=== PATIENT | male | born 1955 | race Caucasian/White ===

== ENCOUNTER → 2018-02-04 | Outpatient (CLI) | payer OTHER ==
[2018-02-04 17:17] LABS: ALBUMIN 3.9 GM/DL (3.2-5.2); ALBUMIN/GLOBULIN RATIO 1.18 (1.00-1.93); ALKALINE PHOSPHATASE 118 U/L (45-117); ALT/SGPT 53 U/L (12-78); AST/SGOT 32 U/L (7-37); BILIRUBIN,DIRECT 0.2 MG/DL (0.0-0.2); BILIRUBIN,TOTAL 0.8 MG/DL (0.2-1.0); TOTAL PROTEIN 7.2 GM/DL (6.4-8.2)
== END ==
LOC: M LAB 15:39
DX: R10.11 Right upper quadrant pain (principal)
CPT/HCPCS: 80076

== ENCOUNTER 2018-02-10 07:25 | Day surgery (SDC) | payer OTHER ==
[~2018-02-10 07:25] MED LIST: LIDOCAINE 1% MDV 20ML VIAL SQ
[2018-02-10] MEDS: AMPICILLIN SOD/SULBACTAM SOD 3 GM in D5W MINI-BAG PLUS 100 ML IV (07:40)
[2018-02-10] MEDS: LR 1,000 ML IV (08:20)
[2018-02-10] MEDS: ISOVUE-300 61% 50ML VIAL (Q9967) As Ordered (10:08)
[2018-02-10] MEDS ORDERED: fentaNYL 100 MCG/2 ML INJECTION (J3010) As Ordered ×2 (10:18→11:38)
[2018-02-10] MEDS ORDERED: SUGAMMADEX SODIUM 500 MG/5 ML VIAL (BRIDION) As Ordered (10:18)
[2018-02-10] MEDS ORDERED: ROCURONIUM BROMIDE 50 MG/5 ML VIAL As Ordered (10:18)
[2018-02-10] MEDS ORDERED: MIDAZOLAM INJ 2 MG/2 ML VIAL (J2250) As Ordered (10:18)
[2018-02-10] MEDS ORDERED: PROPOFOL 200 MG/20 ML VIAL As Ordered ×3 (10:18)
[2018-02-10] MEDS ORDERED: ONDANSETRON 4MG/2ML VIAL (J2405) As Ordered ×2 (10:18→11:41)
[2018-02-10] MEDS ORDERED: LIDOCAINE 2% INJ 100 MG/5 ML SDV (FOR ANES.) As Ordered (10:18)
[2018-02-10] MEDS: CONRAY-60 60% 50ML VIAL (Q9961) As Ordered (10:40)
[2018-02-10] MEDS: BUPIVACAINE HCL 0.25% 30 ML VIAL As Ordered (10:43)
[2018-02-10] MEDS: LIDOCAINE 1% SDV INJ 30 ML VIAL As Ordered (10:43)
[2018-02-10] MEDS ORDERED: KETOROLAC 30 MG/ML VIAL (J1885) As Ordered (11:20)
[2018-02-10] MEDS: KETOROLAC 30 MG/ML VIAL (J1885) IV (11:22)
[2018-02-10] MEDS ORDERED: PERCOCET 5MG/325MG TAB As Ordered (11:38)
[2018-02-10] MEDS: ONDANSETRON 4MG/2ML VIAL (J2405) IV (11:40)
[2018-02-10] MEDS: fentaNYL 100 MCG/2 ML INJECTION (J3010) IV (11:40)
[2018-02-10] MEDS: PERCOCET 5MG/325MG TAB PO ×2 (11:40→12:01)
[2018-02-10] MEDS ORDERED: NORCO, ANEXSIA 5/325MG TABLET (HYDROcodone/ACETAMINOPHEN) PO ×2 (12:00)
[2018-02-10] MEDS ORDERED: ONDANSETRON 4MG/2ML VIAL (J2405) IV (12:00)
[2018-02-10] MEDS ORDERED: METOCLOPRAMIDE INJ 10MG/2ML VIAL (J2765) IV (12:00)
[2018-02-10] MEDS ORDERED: MEPERIDINE INJ 25 MG/ML VIAL (J2175) IV (12:00)
[2018-02-10] MEDS ORDERED: LR 1,000 ML IV (12:00)
== END 2018-02-10 14:15 | disposition home or self-care (01) ==
LOC: M SDC 07:25
DX: K80.10 Calculus of gallbladder with chronic cholecystitis without obstruction (principal); R94.5 Abnormal results of liver function studies; K21.9 Gastro-esophageal reflux disease without esophagitis; G47.33 Obstructive sleep apnea (adult) (pediatric); I10 Essential (primary) hypertension; E78.00 Pure hypercholesterolemia, unspecified; J44.9 Chronic obstructive pulmonary disease, unspecified; R73.02 Impaired glucose tolerance (oral); M15.0 Primary generalized (osteo)arthritis; E66.9 Obesity, unspecified; Z68.39 Body mass index [BMI] 39.0-39.9, adult; Z91.013 Allergy to seafood; Z79.82 Long term (current) use of aspirin; Z87.891 Personal history of nicotine dependence
CPT/HCPCS: 47562

== ENCOUNTER 2018-03-12 11:55 | Day surgery (SDC) | payer OTHER ==
[2018-03-12] MEDS: NS 1,000 ML IV (12:15)
[2018-03-12] MEDS ORDERED: LIDOCAINE 2% INJ 100 MG/5 ML SDV (FOR ANES.) As Ordered (12:33)
[2018-03-12] MEDS ORDERED: PROPOFOL 200 MG/20 ML VIAL As Ordered ×2 (12:33→14:35)
== END 2018-03-12 15:12 | disposition home or self-care (01) ==
LOC: M OPP 15:12
DX: Z12.11 Encounter for screening for malignant neoplasm of colon (principal); D12.5 Benign neoplasm of sigmoid colon; D17.5 Benign lipomatous neoplasm of intra-abdominal organs; K57.30 Diverticulosis of large intestine without perforation or abscess without bleeding; K64.0 First degree hemorrhoids; Z86.79 Personal history of other diseases of the circulatory system; K21.9 Gastro-esophageal reflux disease without esophagitis; Z86.69 Personal history of other diseases of the nervous system and sense organs; Z86.39 Personal history of other endocrine, nutritional and metabolic disease; R12 Heartburn; M19.90 Unspecified osteoarthritis, unspecified site; R22.1 Localized swelling, mass and lump, neck; J44.9 Chronic obstructive pulmonary disease, unspecified; G47.30 Sleep apnea, unspecified; R06.83 Snoring; Z91.013 Allergy to seafood; Z79.82 Long term (current) use of aspirin; Z87.891 Personal history of nicotine dependence; Z80.9 Family history of malignant neoplasm, unspecified
CPT/HCPCS: 45385

== ENCOUNTER → 2018-09-15 | Outpatient (REF) | payer OTHER ==
[~2018-09-15] MED LIST changes: +ASPI81TA52 PO; +IBUP200C25 PO; -LIDOCAINE 1% MDV 20ML VIAL SQ; +MULTTAB4 PO; +VITA100066 PO
== END ==
LOC: M LAB REF 17:06
PROVIDERS: ATTEND Physician Assistant
DX: R10.9 Unspecified abdominal pain (principal)

== ENCOUNTER → 2020-05-29 | Outpatient (CLI) | payer SELFPAY ==
[~2020-05-29] MED LIST changes: +MULT1TAB74 PO; -MULTTAB4 PO
== END ==
LOC: M LABCAHC 16:45
PROVIDERS: ATTEND Pediatrics
DX: Z11.59 Encounter for screening for other viral diseases (principal)

== ENCOUNTER → 2021-04-25 | Outpatient (CLI) | payer MEDICARE, OTHER ==
[2021-04-25 10:46] LABS: INR 1.11; PROTHROMBIN TIME 14.7 SECONDS (12.7-14.5)
[2021-04-25 11:07] LABS: ALBUMIN 3.9 GM/DL (3.2-5.2); ALT/SGPT 44 U/L (12-78); BILIRUBIN,DIRECT 0.3 MG/DL (0.0-0.2); BILIRUBIN,TOTAL 1.2 MG/DL (0.2-1.0); IRON (FE) 94 UG/DL (65-175); PERCENT SATURATION 32.8 % (19.7-50.0); TOTAL IRON BINDING CAPACITY 287 UG/DL (250-450); TOTAL PROTEIN 7.4 GM/DL (6.4-8.2)
[2021-04-25 11:29] LABS: HEPATITIS B SURFACE ANTIGEN NEGATIVE (NEGATIVE)
[2021-04-25 11:56] LABS: HEPATITIS B CORE ANTIBODY IGM NEGATIVE (NEGATIVE); HEPATITIS C VIRUS ABY INDEX < 0.0 INDEX (<0.8)
[2021-04-30 15:12] LABS: ANCA-ATYPICAL <1:20 titer (Neg:<1:20); ANTI-MITOCHONDRIAL ANTIBODY <20.0 Units (0.0-20.0); ANTINUCLEAR ANTIBODIES DIRECT Negative (Negative); CERULOPLASMIN 19.5 mg/dL (16.0-31.0); CYTOPLASMIC NEUTROP AB ANCA-C <1:20 titer (Neg:<1:20); LIVER-KIDNEY MICROSOMAL ABY <20.1 Units (0.0-20.0); PERINUCLEAR AB ANCA-P <1:20 titer (Neg:<1:20); TISSUE TRANSGLUTAMINASE IgA <2 U/mL (0-3)
== END ==
LOC: M PLALAB 07:38
PROVIDERS: ATTEND Internal Medicine Gastroenterology
DX: R93.2 Abnormal findings on diagnostic imaging of liver and biliary tract (principal); Z79.899 Other long term (current) drug therapy